=== PATIENT | male | born 1965 | race Caucasian/White ===

== ENCOUNTER → 2023-09-24 09:15 | Outpatient (REF) | payer OTHER, SELFPAY ==
[2023-09-24 10:32] LABS: Urine Albumin Negative (Neg - Trace); Urine Bilirubin Negative (Negative); Urine Character Clear (Clear); Urine Color Yellow; Urine Glucose Negative (Negative); Urine Ketone Negative (Negative); Urine Leukocyte Trace (Negative); Urine Nitrite Negative (Negative); Urine Occult Blood Negative (Negative); Urine Urobilinogen Negative (Neg - 1+); Urine pH 6.5 (5.0-9.0)
[2023-09-24 10:37] LABS: Blood Urea Nitrogen 17 mg/dl (9-20)
[2023-09-24 10:45] LABS: Urine Mucus Few; Urine Squamous Cell 0-2 /LPF (Few)
[2023-09-24 10:46] LABS: Urine Bacteria Few (Negative); Urine Red Blood Cell 0-2 /HPF (0-2); Urine White Cell 0-2 /HPF (0-5)
== END ==
LOC: RAD 09:15
PROVIDERS: ATTENDING PHYSICIAN Internal Medicine
DX: M54.9 Dorsalgia, unspecified (principal); R10.30 Lower abdominal pain, unspecified
CPT/HCPCS: 74177; 81003; 81015; 82565; 84520; 87086; Q9967